=== PATIENT | male | born 1945 | race Caucasian/White ===

== ENCOUNTER 2017-03-02 08:24 | Emergency (ER) | payer MEDICARE ==
--- NOTE | 2017-03-02 09:09 | ERPHSYRPT ---
- History of Present Illness Time Seen by Provider: 03/02/17 08:47 Source: patient Patient Subjective Stated Complaint: PT REPORTS TIP OF HEARING AID IS IN RIGHT EAR-DENIES PAIN Triage Nursing Assessment: PT P[place] T [id number] OBJECT NOTED IN EAR WAX OF RIGHT EAR Physician History: CC: FB right ear Hx: 71 y/o patient of Dr Suarez lost the plastic rubber piece from hearing aid in the right ear canal. No digging, discharge. Happened today before work. No pain. Allergies/Adverse Reactions: No Known Drug Allergies Allergy (Verified 03/02/17 08:34) Home Medications: Amlodipine Besylate 10 mg [Norvasc 10 MG] 10 mg PO DAILY 03/02/17 [History] Aspirin 81 mg PO DAILY 03/02/17 [History] Clopidogrel Bisulfate 75 mg [PLAVIX 75 MG Tablet] 75 mg PO DAILY 03/02/17 [History] Digoxin 0.125 mg Tablet [Lanoxin 0.125MG TABLET] 0.125 mg PO DAILY [History] Insulin Glargine,Hum.rec.anlog [Lantus] 36 unit SQ HS 03/02/17 [History] Insulin Lispro [Humalog] 1 unit SQ UD 03/02/17 [History] Lisinopril [Zestril 40 mg] 40 mg PO DAILY 03/02/17 [History] Metformin HCl [Glucophage] 1,000 mg PO BID 03/02/17 [History] Metoprolol Tartrate 25 mg PO BID 03/02/17 [History] Ranitidine HCl [Zantac] 150 mg PO BID 03/02/17 [History] Hx Tetanus, Diphtheria Vaccination/Date Given: No Hx Influenza Vaccination/Date Given: Yes (2015) Hx Pneumococcal Vaccination/Date Given: No Immunizations Up to Date: Yes - Review of Systems Ears, Nose, & Throat: Hearing Changes (wearshearing aids), No Ear Pain, No Ear Discharge - Past Medical History Pertinent Past Medical History: Yes Neurological History: No Pertinent History ENT History: No Pertinent History Cardiac History: Arrhythmia, Hypertension, Other Respiratory History: No Pertinent History Endocrine Medical History: Diabetes Type II Musculoskeletal History: No Pertinent History GI Medical History: No Pertinent History History: No Pertinent History Psycho-Social History: No Pertinent History Male Reproductive Disorders: Other Other Medical History: Bradycardia. 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 Removed with forceps atraumatically. No bleeding or sign of canal abrasion. No residual FB. - Course Nursing assessment & vital signs reviewed: Yes - Departure Time of Disposition: 09:08 Departure Disposition: Home Clinical Impression: Acute foreign body of right ear canal Qualifiers: Encounter type: initial encounter Qualified Code(s): T16.1XXA - Foreign body in right ear, initial encounter Condition: Stable Critical Care Time: No Referrals: UMA SUAREZ [Primary Care Provider] - Instructions: Removal of Foreign Body From Ear Additional Instructions: Follow up with Dr Suarez for problems or concerns.
[2017-03-02 09:29] VITALS: BP 141/88; PULSE 80; O2SAT 97
== END 2017-03-02 09:24 | disposition home or self-care (01) ==
LOC: ED 08:24
DX: T16.1XXA Foreign body in right ear, initial encounter (principal)
CPT/HCPCS: 99282

== ENCOUNTER 2022-02-26 08:21 | Day surgery (SDC) | payer MEDICARE ==
--- NOTE | 2022-02-19 10:34 | HP ---
DATE OF SURGERY: 02/26/2022 HISTORY OF PRESENT ILLNESS: The patient is a 76-year-old male who presents for colonoscopy. The last colonoscope was about ten years ago and he had some polyps. He denies any GI signs or symptoms at this time. Denies family history of colon cancer. PAST MEDICAL HISTORY: Coronary artery disease, diabetes, hypertension. PAST SURGICAL HISTORY: Heart stents. Pacemaker x3. ALLERGIES: NKDA. MEDICATIONS: Coreg, Eliquis, zopicglone, Zetia, lisinopril, Tamsulosin hydrochlorothiazide, vitamin D. FAMILY HISTORY: None reported. SOCIAL HISTORY: None reported. REVIEW OF SYSTEMS: CONSTITUTIONAL: Denies fever or chills. CHEST: Denies shortness of breath. CVS: Denies chest pain. ABDOMEN: Denies abdominal pain, nausea, vomiting, diarrhea, constipation or rectal bleeding. PHYSICAL EXAMINATION: GENERAL: No acute distress. CHEST: Nonlabored. No shortness of breath. CVS: Regular rate and rhythm. ABDOMEN: Soft, nontender. IMPRESSION: History of colon polyps and screening. PLAN: Colonoscopy with Dr. Abhilash Martel. As dictated by Radha Reyes NP.
[2022-02-26] MEDS ORDERED: Lactated Ringers 1,000 ML IV ONE (09:36)
[2022-02-26] MEDS ORDERED: Lactated Ringers 1,000 ML IV SCH (10:00)
[2022-02-26] MEDS ORDERED: DIPRIVAN 200 MG/20 ML IV ONE ×2 (10:51→11:11)
[2022-02-26] MEDS ORDERED: Xylocaine-Mpf 2% 5 Ml Vial ONE (10:51)
[2022-02-26 12:09] VITALS: BP 141/76; PULSE 69; O2SAT 95
--- NOTE | 2022-02-26 13:09 | OP ---
SURGERY DATE/TIME: 02/26/2022 1100 PREOPERATIVE DIAGNOSIS: Follow up polyps. POSTOPERATIVE DIAGNOSIS: No polyps. PROCEDURE: Colonoscopy complete to cecum. SURGEON: Abhilash Martel M.D. ANESTHESIA: MAC. COMPLICATIONS: None. CONDITION: Stable. INDICATION: The patient presents for five year follow up of polyps. DESCRIPTION OF PROCEDURE: Taken to endoscopy. Left lateral decubitus position. Anal digital examination satisfactory. Scope introduced. The scope advanced to the cecum. Base of the cecum, ileocecal valve confirmed. Cecum, ascending, hepatic, transverse, splenic, descending, sigmoid, rectum, anus was normal. No polyps today. In three to five years he will be 79 - 81, we will not send him any reminders, will take him off the follow up list. If he has symptoms, he can return back PRN at any time.
== END 2022-02-26 12:23 | disposition home or self-care (01) ==
LOC: SDC 08:21
PROVIDERS: ATTEND Surgery
DX: Z09 Encounter for follow-up examination after completed treatment for conditions other than malignant neoplasm (principal); Z86.010 Personal history of colon polyps; E11.9 Type 2 diabetes mellitus without complications
CPT/HCPCS: 82947; 99100; J2704

== ENCOUNTER 2022-07-26 07:36 | Observation (INO) | payer MEDICARE, BC ==
[2022-07-26] MEDS ORDERED: Zofran 4 MG/2 ML VIAL IV ONE (07:47)
[2022-07-26] MEDS ORDERED: PROTONIX 40 MG IV IV ONE ×2 (07:47→08:02)
[2022-07-26] MEDS ORDERED: Zofran 4 MG/2 ML VIAL ONE (08:02)
[2022-07-26 08:12] LABS: Absolute Neutrophil Ct (ANC) 9.76 x10^3/uL (1.4-6.9); Basophil (Absolute #) 0.04 x10^3/uL (0-0.4); Eosinophil % 1.6 % (0.00-5.0); Eosinophil (Absolute #) 0.19 x10^3/uL (0-0.5); Hematocrit 39.6 % (42-50); Hemoglobin 13.1 g/dL (12.5-18.0); Lymphocyte (Absolute #) 1.05 x10^3/uL (1.0-4.6); Lymphocytes % 8.9 % (24.0-44.0); Mean Cell Volume 96.8 fL (78-100); Mean Corpuscular Hgb Concent. 33.1 g/dL (32-36); Mean Platelet Volume 10.1 fL (7.5-11.0); Monocyte (Absolute #) 0.72 x10^3/uL (0.0-1.3); Monocytes % 6.1 % (0.0-12.0); Neutrophil % 82.6 % (36.0-66.0); Platelet Count 246 x10^3/uL (150-450); Red Blood Count 4.09 x10^6/uL (4.1-5.6); White Blood Count 11.8 x10^3/uL (4.0-10.5)
--- NOTE | 2022-07-26 08:27 | ERPHSYRPT ---
- History of Present Illness Historian: patient Exam Limitations: no limitations Patient Subjective Stated Complaint: Fever/SOB Triage Nursing Assessment: Patient ambulated back to ED and transferred self to bed. Patient's skin pink, warm and dry. Patient complain of fever, SOB, cough, vomiting, fatigue for several days. Patient started having Diarrhea on Wednesday and that lasted 3 days then patient started having vomiting, fever, non productive cough, SOB, and fatigue. Patient's spouse states temp was 103.0 this am and gave him Ibruprofen. Patient's initial O2 noted to be 87%. Patient placed on O2 at 2 liters per N/C. Lungs clear a/p harris. Physician History: 76 yo WM w diarrhea M-Th last week(Now Sun) now has N and reflux wo vomiting. He has generalized abdominal pain and distension which is rated 6/10 and sharp. Pt has a mild fever and mild cough. w similar symptoms last week and has recovered. He denies melena/hematochezia/dysuria/hematuria/chest pain. Timing/Duration: other (Diarrhea M-Th/Nausea-reflux last night) Activities at Onset: rest Quality: sharpness Abdominal Pain Onset Location: generalized abdomen Pain Radiation: no radiation Severity of Pain-Max: severe Severity of Pain-Current: moderate Modifying Factors: Improves With: nothing Associated Symptoms: diarrhea, fever/chills, fatigue, loss of appetite, nausea, No back, No chest pain, No diaphoresis, No headache, No heartburn, No neck pain, No rash, No shortness of breath, No syncope, No vomiting, No weakness Previous symptoms: no prior history Allergies/Adverse Reactions: No Known Drug Allergies Allergy (Verified 07/26/22 07:49) Home Medications: Apixaban [Eliquis 5 mg Tablet] 1 tab PO BID 02/24/22 [History] Ergocalciferol (Vitamin D2) [Vitamin D2] 1 tab PO WEEKLY 02/24/22 [History] Eszopiclone 1 tab PO QHS 02/24/22 [History] Ezetimibe 10 mg [Zetia 10 MG] 1 tab PO DAILY 02/24/22 [History] Fenofibrate Nanocrystallized [Fenofibrate] 1 tab PO DAILY 02/24/22 [History] Insulin Degludec [Tresiba] 40 units SQ UD 02/24/22 [History] Insulin Glulisine [Apidra Solostar] 0 units SQ UD 02/24/22 [History] Lisinopril 20 mg [Zestril 20 MG] 1 tab PO DAILY 02/24/22 [History] Tamsulosin HCl 0.4 mg [Flomax 0.4 MG] 1 tab PO DAILY 02/24/22 [History] Triamterene/Hydrochlorothiazid [Triamterene-Hctz 37.5-25 mg Tb] 1 tab PO DAILY 02/24/22 [History] carvediloL [Carvedilol] 25 mg PO BID 02/24/22 [History] Sitagliptin Phosphate 50 MG [Januvia 50 MG] 100 mg PO DAILY 07/26/22 [History] Hx Tetanus, Diphtheria Vaccination/Date Given: No Hx Influenza Vaccination/Date Given: No Hx Pneumococcal Vaccination/Date Given: No Immunizations Up to Date: Yes Travel Risk - International Travel Have you traveled outside of the country in past 3 weeks: No - Coronavirus Screening Symptoms: Fever, Cough: New Onset, Shortness of Breath, Vomiting/Diarrhea, Headaches/Body Aches/Fatigue Close contact with a COVID-19 positive Pt in past 14-21 Days: No - Vaccine Status Have you recieved a Covid-19 vaccination: Yes Environmental Programs Manager: [employer] - Vaccination Dates Date of 2cond Vaccination (if applicable): na - Review of Systems Constitutional: No Symptoms, Fever, Chills, Fatigue, Malaise Eyes: No Symptoms Ears, Nose, & Throat: No Symptoms Respiratory: No Symptoms, Cough Cardiac: No Symptoms Abdominal/Gastrointestinal: Abdominal Pain, Nausea, Diarrhea, No Vomiting Musculoskeletal: No Symptoms Skin: No Symptoms Neurological: No Symptoms Psychological: No Symptoms Endocrine: No Symptoms Hematologic/Lymphatic: No Symptoms Immunological/Allergic: No Symptoms - Past Medical History Pertinent Past Medical History: Yes Neurological History: No Pertinent History ENT History: No Pertinent History Cardiac History: High Cholesterol, Hypertension Respiratory History: Other Endocrine Medical History: Diabetes Type II Musculoskeletal History: No Pertinent History GI Medical History: No Pertinent History History: No Pertinent History Psycho-Social History: No Pertinent History Male Reproductive Disorders: No Pertinent History Other Medical History: Shortness of breath since covid. Former smoker. Quit 40 years ago. - Past Surgical History Past Surgical History: Yes Neuro Surgical History: No Pertinent History Cardiac: Cardiac Catheterization, Cardiac Stent, Pacemaker Respiratory: No Pertinent History Gastrointestinal: Other Genitourinary: No Pertinent History Musculoskeletal: No Pertinent History Male Surgical History: No Pertinent History Other Surgical History: Pacemaker x 3. Heart Cath x 2. Cardiac stents. Colonoscopy x 2. - Social History Smoking Status: Former smoker Exposure to second hand smoke: No Drug Use: none Patient Lives Alone: No - Nursing Vital Signs Nursing Vital Signs: Initial Vital Signs Temperature 99.3 F 07/26/22 07:51 Pulse Rate 89 07/26/22 07:51 Respiratory Rate 18 07/26/22 07:51 Blood Pressure 139/77 07/26/22 07:51 O2 Sat by Pulse Oximetry 98 07/26/22 07:51 Pain Scale Pain Intensity 0 WNL - Physical Exam General Appearance: no apparent distress Eye Exam: PERRL/EOMI, eyes nml inspection Ears, Nose, Throat Exam: normal ENT inspection, TMs normal, pharynx normal, moist mucous membranes Neck Exam: normal inspection, non-tender, supple, full range of motion, No meningismus, No mass, No Brudzinski, No Kernig's, No carotid bruit Respiratory Exam: normal breath sounds, lungs clear, airway intact Cardiovascular Exam: regular rate/rhythm, normal heart sounds, normal peripheral pulses, capillary refill <2 sec, No murmur Gastrointestinal/Abdomen Exam: soft, normal bowel sounds, tenderness (Mild diffuse), distention Back Exam: normal inspection, normal range of motion, No CVA tenderness, No vertebral tenderness, No rash Extremity Exam: normal inspection, normal range of motion Neurologic Exam: alert, oriented x 3, cooperative, hop worker II-XII nml as tested, normal mood/affect, nml station & gait, sensation nml Skin Exam: normal color, warm, dry Lymphatic Exam: No adenopathy SpO2 Interpretation: normal SpO2: 98 O2 Delivery: Room Air - Course Nursing assessment & vital signs reviewed: Yes EKG Interpreted by Me: RATE (NSR Rate85/RBBB/1st degree AV block/No acute ST seg ment changes) - CT Exams Chest CT Interpretation: Tele-radiologist Report (R middle lobe-RLL infiltrate/LLL infiltrate) Abdomen/Pelvis CT Interpretation: Tele-radiologist Report (NAD in abdomen-pelvis) Ordered Tests: Active Orders 24 hr Category Date Time Status Bedrest with BRP/BSC ROUTINE Activity 07/26/22 10:14 Active Code Status Order ROUTINE Care 07/26/22 10:13 Active EKG-ER Only STAT Care 07/26/22 07:47 Active IV Care Q6H Care 07/26/22 10:13 Active IV Insertion STAT Care 07/26/22 07:47 Active Intake and Output Q12H Care 07/26/22 10:[address] in Observation ROUTINE Care 07/26/22 10:13 Active Vital Signs Q4H Care 07/26/22 10:12 Active Consistent Carbohydrate Diet 2000 Calorie Diet 07/26/22 Lunch Active ABDOMEN AND PELVIS W/0 CONTRAS [CT] Stat Exams 07/26/22 07:48 Taken CHEST WITHOUT CONTRAST [CT] Stat Exams 07/26/22 08:34 Taken AMYLASE Stat Lab 07/26/22 08:00 Completed BLOOD CULTURE Stat Lab 07/26/22 10:17 Received CBC W DIFF AM.LAB Lab 07/27/22 04:00 Ordered CBC W DIFF Stat Lab 07/26/22 08:00 Completed CMP AM.LAB Lab 07/27/22 04:00 Ordered CMP Stat Lab 07/26/22 08:00 Completed LIPASE Stat Lab 07/26/22 08:00 Completed Lactic Acid AM.LAB Lab 07/27/22 04:00 Ordered Lactic Acid Stat Lab 07/26/22 08:25 Completed Lactic Acid Stat Lab 07/26/22 10:30 Received TROPONIN Q4H Lab 07/26/22 08:00 Completed TROPONIN Q4H Lab 07/26/22 12:00 Ordered TROPONIN Q4H Lab 07/26/22 16:00 Ordered UA W/RFX CULTURE Stat Lab 07/26/22 08:01 Completed Oxygen Nasal Cannula 2 lpm RT 07/26/22 10:12 Active Transfer Order Routine Transfer 07/26/22 Ordered Medication Summary Generic Name Dose Route Start Last Admin Trade Name Freq PRN Reason Stop Dose Admin Heparin Sodium (Beef Lung) 5,000 unit 07/26/22 14:00 Heparin 5000 Unit/0.5 Ml Syringe SQ 08/25/22 13:59 Q8HT MATHEW Sodium Chloride 1,000 mls @ 100 mls/hr 07/26/22 10:15 Sodium Chloride 0.9% 1000 Ml IV 08/25/22 10:14 .Q10H MATHEW Azithromycin 500 mg in 250 mls @ 250 mls/hr 07/26/22 12:00 Zithromax 500 Mg/ 250 Ml Nacl Premix IV 08/25/22 11:59 Q24H10 [facility] Ceftriaxone Sodium/Dextrose 1 g in 50 mls @ 100 mls/hr 07/27/22 10:00 Rocephin 1 Gm-D5w 50 Ml Bag IV 07/30/22 09:59 Q24H10 [facility] Insulin Human Lispro 0 unit 07/26/22 10:12 Insulin Lispro 1 Unit SQ 08/25/22 10:11 UD PRN HYPERGLYCEMIA Ondansetron HCl 4 mg 07/26/22 10:12 Ondansetron Hcl 4 Mg/2 Ml Vial IV 08/25/22 10:11 Q6H PRN PRN NAUSEA/VOMITING Pantoprazole Sodium 40 mg 07/27/22 10:00 Pantoprazole 40 Mg Vial IV 08/26/22 09:59 Q24H10 [facility] Discontinued Medications Generic Name Dose Route Start Last Admin Trade Name Freq PRN Reason Stop Dose Admin Sodium Chloride 1,000 mls @ 999 mls/hr 07/26/22 08:29 07/26/22 10:24 Sodium Chloride 0.9% 1000 Ml IV 07/26/22 09:29 Infused .Q1H1M STA Infusion Sodium Chloride Confirm 07/26/22 08:30 Sodium Chloride 0.9% 1000 Ml Administered 07/26/22 08:31 Dose 1,000 mls @ ud .ROUTE .STK-MED ONE Sodium Chloride 1,000 mls @ 999 mls/hr 07/26/22 09:13 07/26/22 11:27 Sodium Chloride 0.9% 1000 Ml IV 07/26/22 10:13 Infused .Q1H1M STA Infusion Sodium Chloride Confirm 07/26/22 09:38 Sodium Chloride 0.9% 1000 Ml Administered 07/26/22 09:39 Dose 1,000 mls @ ud .ROUTE .STK-MED ONE Ceftriaxone Sodium/Dextrose 1 g in 50 mls @ 100 mls/hr 07/26/22 09:57 07/26/22 10:57 Rocephin 1 Gm-D5w 50 Ml Bag IV 07/26/22 10:26 Infused STAT STA Infusion Sodium Chloride 1,000 mls @ 999 mls/hr 07/26/22 09:57 07/26/22 11:27 Sodium Chloride 0.9% 1000 Ml IV 07/26/22 10:57 999 mls/hr .Q1H1M STA Administration Sodium Chloride Confirm 07/26/22 10:04 Sodium Chloride 0.9% 1000 Ml Administered 07/26/22 10:05 Dose 1,000 mls @ ud .ROUTE .STK-MED ONE Ceftriaxone Sodium/Dextrose Confirm 07/26/22 10:04 Rocephin 1 Gm-D5w 50 Ml Bag Administered 07/26/22 10:05 Dose 1 g in 50 mls @ ud IV .STK-MED ONE Ondansetron HCl 4 mg 07/26/22 07:47 07/26/22 08:03 Ondansetron Hcl 4 Mg/2 Ml Vial IV 07/26/22 07:48 4 mg STAT ONE Administration Ondansetron HCl Confirm 07/26/22 08:02 Ondansetron Hcl 4 Mg/2 Ml Vial Administered 07/26/22 08:03 Dose 4 mg .ROUTE .STK-MED ONE Pantoprazole Sodium 40 mg 07/26/22 07:47 07/26/22 08:03 Pantoprazole 40 Mg Vial IV 07/26/22 07:48 40 mg STAT ONE Administration Pantoprazole Sodium Confirm 07/26/22 08:02 Pantoprazole 40 Mg Vial Administered 07/26/22 08:03 Dose 40 mg IV .STK-MED ONE Lab/Rad Data: Laboratory Result Diagrams 07/26/22 08:00 07/26/22 08:00 Laboratory Results 07/26/22 07/26/22 07/26/22 Range/Units 08:25 08:01 08:00 WBC (4.0-10.5) x10^3/uL RBC (4.1-5.6) x10^6/uL Hgb (12.5-18.0) g/dL Hct (42-50) % MCV (78-100) fL MCH (26-32) pg MCHC (32-36) g/dL RDW (11.5-14.0) % Plt Count (150-450) x10^3/uL MPV (7.5-11.0) fL Gran % (36.0-66.0) % Immature Gran % (Auto) (0.00-0.4) % Nucleat RBC Rel Count (0.00-0.1) % Eos # (Auto) (0-0.5) x10^3/uL Immature Gran # (Auto) (0.00-0.03) x10^3u/L Absolute Lymphs (auto) (1.0-4.6) x10^3/uL Absolute Monos (auto) (0.0-1.3) x10^3/uL Absolute Nucleated RBC (0.00-0.01) x10^3u/L Lymphocytes % (24.0-44.0) % Monocytes % (0.0-12.0) % Eosinophils % (0.00-5.0) % Basophils % (0.0-0.4) % Absolute Granulocytes (1.4-6.9) x10^3/uL Basophils # (0-0.4) x10^3/uL Sodium (137-145) mmol/L Potassium (3.5-5.1) mmol/L Chloride (98-107) mmol/L Carbon Dioxide (22-30) mmol/L Anion Gap (5-15) MEQ/L BUN (9-20) mg/dL Creatinine (0.66-1.25) mg/dL Estimated GFR ML/MIN Glucose (74-106) mg/dL Lactic Acid 2.8 H (0.4-2.0) Calcium (8.4-10.2) mg/dL Total Bilirubin (0.2-1.3) mg/dL AST (17-59) U/L ALT (0-50) U/L Alkaline Phosphatase (38-126) U/L Troponin I < 0.012 (0.000-0.034) ng/mL Serum Total Protein (6.3-8.2) g/dL Albumin (3.5-5.0) g/dL Amylase (30-110) U/L Lipase (23-300) U/L Urinalys Dipstick Clnc MAIN LAB Urine Color YELLOW (YELLOW) Urine Appearance CLEAR (CLEAR) Urine pH 6.0 (5-6) Ur Specific [place] 1.025 (1.005-1.025) POC Urine Protein Conf TRACE (Negative) Urine Ketones NEGATIVE (NEGATIVE) Urine Nitrite NEGATIVE (NEGATIVE) Urine Bilirubin NEGATIVE (NEGATIVE) Urine Urobilinogen 0.2 (0-1) mg/dL Urine Leukocytes NEGATIVE (NEGATIVE) Urine WBC (Auto) NONE (0-5) /HPF Urine RBC (Auto) NONE SEEN (0-2) /HPF U Hyaline Cast (Auto) 0-2 (0-2) /LPF U Epithel Cells (Auto) NONE (FEW) /HPF Urine Bacteria (Auto) NONE SEEN (NEGATIVE) /HPF Urine RBC NEGATIVE (0-5) Zeus/ul Urine Mucus (Auto) SLIGHT (NEGATIVE) /HPF Ur Culture Indicated? NO Urine Glucose NEGATIVE (NEGATIVE) mg/dL Influenza Type A Ag (NEGATIVE) Influenza Type B Ag (NEGATIVE) RSV (PCR) (Negative) SARS-CoV-2 (PCR) (NEGATIVE) 07/26/22 07/26/22 07/26/22 Range/Units 08:00 08:00 07:58 WBC 11.8 H (4.0-10.5) x10^3/uL RBC 4.09 L (4.1-5.6) x10^6/uL Hgb 13.1 (12.5-18.0) g/dL Hct 39.6 L (42-50) % MCV 96.8 (78-100) fL MCH 32.0 (26-32) pg MCHC 33.1 (32-36) g/dL RDW 13.0 (11.5-14.0) % Plt Count 246 (150-450) x10^3/uL MPV 10.1 (7.5-11.0) fL Gran % 82.6 H (36.0-66.0) % Immature Gran % (Auto) 0.5 H (0.00-0.4) % Nucleat RBC Rel Count 0.0 (0.00-0.1) % Eos # (Auto) 0.19 (0-0.5) x10^3/uL Immature Gran # (Auto) 0.06 H (0.00-0.03) x10^3u/L Absolute Lymphs (auto) 1.05 (1.0-4.6) x10^3/uL Absolute Monos (auto) 0.72 (0.0-1.3) x10^3/uL Absolute Nucleated RBC 0.00 (0.00-0.01) x10^3u/L Lymphocytes % 8.9 L (24.0-44.0) % Monocytes % 6.1 (0.0-12.0) % Eosinophils % 1.6 (0.00-5.0) % Basophils % 0.3 (0.0-0.4) % Absolute Granulocytes 9.76 H (1.4-6.9) x10^3/uL Basophils # 0.04 (0-0.4) x10^3/uL Sodium 135 L (137-145) mmol/L Potassium 4.6 (3.5-5.1) mmol/L Chloride 101 (98-107) mmol/L Carbon Dioxide 24 (22-30) mmol/L Anion Gap 13.9 (5-15) MEQ/L BUN 35 H (9-20) mg/dL Creatinine 1.56 H (0.66-1.25) mg/dL Estimated GFR 46.1 ML/MIN Glucose 135 H (74-106) mg/dL Lactic Acid (0.4-2.0) Calcium 8.5 (8.4-10.2) mg/dL Total Bilirubin 0.50 (0.2-1.3) mg/dL AST 29 (17-59) U/L ALT 19 (0-50) U/L Alkaline Phosphatase 44 (38-126) U/L Troponin I (0.000-0.034) ng/mL Serum Total Protein 6.9 (6.3-8.2) g/dL Albumin 3.8 (3.5-5.0) g/dL Amylase 55 (30-110) U/L Lipase 51 (23-300) U/L Urinalys Dipstick Clnc Urine Color (YELLOW) Urine Appearance (CLEAR) Urine pH (5-6) Ur Specific [place] (1.005-1.025) POC Urine Protein Conf (Negative) Urine Ketones (NEGATIVE) Urine Nitrite (NEGATIVE) Urine Bilirubin (NEGATIVE) Urine Urobilinogen (0-1) mg/dL Urine Leukocytes (NEGATIVE) Urine WBC (Auto) (0-5) /HPF Urine RBC (Auto) (0-2) /HPF U Hyaline Cast (Auto) (0-2) /LPF U Epithel Cells (Auto) (FEW) /HPF Urine Bacteria (Auto) (NEGATIVE) /HPF Urine RBC (0-5) Zeus/ul Urine Mucus (Auto) (NEGATIVE) /HPF Ur Culture Indicated? Urine Glucose (NEGATIVE) mg/dL Influenza Type A Ag NEGATIVE (NEGATIVE) Influenza Type B Ag NEGATIVE (NEGATIVE) RSV (PCR) NEGATIVE (Negative) SARS-CoV-2 (PCR) NEGATIVE (NEGATIVE) - Progress Progress: improved Progress Note: 07/26/22 10:18 1L NS bolus x2 in ER w 3rd ordered for 30ml/Kg sepsis protocol 1gm IV Rocephin Discussed with : Trever Will see patient in: hospital (observation) Counseled pt/family regarding: lab results, diagnosis, need for follow-up, rad results - Departure Departure Disposition: Observation Clinical Impression: Pneumonia Condition: Stable Critical Care Time: No
[2022-07-26] MEDS ORDERED: Sodium Chloride 0.9% 1000 ML 1,000 ML IV STA ×2 (08:29→09:57)
[2022-07-26] MEDS ORDERED: Sodium Chloride 0.9% 1000 ML 1,000 ML ONE ×3 (08:30→10:04)
[2022-07-26 08:36] LABS: ALBUMIN 3.8 g/dL (3.5-5.0); ANION GAP 13.9 MEQ/L (5-15); BILIRUBIN,TOTAL 0.5 mg/dL (0.2-1.3); Calcium 8.5 mg/dL (8.4-10.2); Creatinine 1 1.56 mg/dL (0.66-1.25); EST GLOMERULAR FILTRATION RATE 46.1 ML/MIN; Potassium 4.6 mmol/L (3.5-5.1); Total Protein 6.9 g/dL (6.3-8.2)
[2022-07-26 08:57] LABS: INFLUENZA A NEGATIVE (NEGATIVE); INFLUENZA B NEGATIVE (NEGATIVE); RESPIRATORY SYNCTIAL VIRUS NEGATIVE (Negative); SARS-CoV-2 Xpert Express NEGATIVE (NEGATIVE)
[2022-07-26 09:05] LABS: Appearance CLEAR (CLEAR); Bilirubin NEGATIVE (NEGATIVE); Dipstick done @ ? MAIN LAB; Glucose NEGATIVE (NEGATIVE); Ketones NEGATIVE (NEGATIVE); Nitrite NEGATIVE (NEGATIVE); Protein,Urine Dip TRACE (Negative); RBC NEGATIVE Ery/ul (0-5); Specific Gravity 1.025 (1.005-1.025); Urobilinogen 0.2 mg/dL (0-1)
[2022-07-26 09:06] LABS: Hyaline Casts 0-2 /LPF (0-2); Mucus SLIGHT /HPF (NEGATIVE)
[2022-07-26 09:07] LABS: Bacteria NONE SEEN /HPF (NEGATIVE); RBC NONE SEEN /HPF (0-2); Urine Cultured Indicated? NO
[2022-07-26] MEDS: Sodium Chloride 0.9% 1000 ML 1,000 ML IV STA ×2 (09:39→10:04)
[2022-07-26] MEDS ORDERED: ROCEPHIN 1 Gm-D5w 50 ml Bag** 1 G/50 ML IVPB IV STA (09:57)
[2022-07-26] MEDS ORDERED: ROCEPHIN 1 Gm-D5w 50 ml Bag** 1 G/50 ML IVPB IV ONE (10:04)
[2022-07-26] MEDS ORDERED: Zofran 4 MG/2 ML VIAL IV PRN (10:12)
[2022-07-26] MEDS ORDERED: HUMALOG SQ PRN (10:12)
[2022-07-26] MEDS: Sodium Chloride 0.9% 1000 ML 1,000 ML IV SCH ×2 (12:26→22:24)
[2022-07-26] MEDS ORDERED: HEPARIN 5000 UNITS/0.5 ML (HIGH RISK MED) SQ SCH (14:00)
[2022-07-26] MEDS: Zithromax 500 MG/ 250 ML NaCl Premix 500 MG/250 ML IVPB IV SCH (14:00)
[2022-07-26] MEDS ORDERED: INSULIN DEGLUDEC 100 UNIT/ML SQ SCH (14:30)
[2022-07-26] MEDS ORDERED: MEDICATION INTERVENTION MC SCH (15:00)
[2022-07-26] MEDS: Flomax 0.4 MG PO SCH (16:32)
[2022-07-26] MEDS: Tricor 145 MG PO SCH (16:32)
[2022-07-26] MEDS: Zetia 10 MG PO SCH (16:32)
[2022-07-26] MEDS: Maxzide-25MG Tablet PO SCH (16:33)
[2022-07-26] MEDS: Zestril 20 MG PO SCH (16:33)
[2022-07-26] MEDS: Januvia 50 MG PO SCH (16:33)
--- NOTE | 2022-07-26 17:53 | XRAY ---
Indication: Dyspnea, cough, and fever. Multiple contiguous images obtained through the chest without contrast. Comparison: November 04, 2020 Lungs again demonstrates diffuse patchy airspace disease worsened in the interim, right greater than left. No effusion. Heart not enlarged again with left dual-lead pacemaker. Aorta demonstrates minimal scattered arteriosclerotic calcifications without aneurysm. No pathologic mediastinal lymphadenopathy. Stable small mediastinal lymph nodes again largest subcarinal measuring 1.5 x 1.6 cm. Bony thorax intact again with osteopenia and mild degenerative changes throughout the spine. CT abdomen/pelvis reported separately. Impression: Worsening diffuse bilateral airspace disease, right greater than left. Small mediastinal lymph nodes presumed reactive. Comment: Preliminary interpretation made by C. No critical discrepancy.
--- NOTE | 2022-07-26 17:57 | XRAY ---
Indication: Abdomen pain, nausea, vomiting, diarrhea. Multiple contiguous images obtained through the abdomen and pelvis without contrast. Comparison: None CT chest reported separately. Noncontrasted stomach and bowel loops appear nonobstructed with normal appendix. Minimal scattered colonic diverticulosis without diverticulitis. No free fluid/air. Enlarged prostate gland impresses on the base of the bladder. Remaining liver, gallbladder, pancreas, spleen, adrenal glands, kidneys, ureters, and bladder are unremarkable for noncontrast exam. Mild scattered aortoiliac calcifications without AAA. Osseous structures intact with osteopenia and mild degenerative changes throughout the thoracolumbar spine. Small fatty left inguinal hernia. Impression: 1. Colonic diverticulosis, enlarged prostate gland, arteriosclerotic disease, fatty left inguinal hernia, and chronic bony findings. 2. Remaining CT abdomen/pelvis without contrast exam is negative. Comment: Preliminary interpretation made by [facility]. No critical discrepancy.
[2022-07-26] MEDS: COREG 12.5 MG PO SCH (20:33)
[2022-07-26] MEDS: ELIQUIS 2.5 MG TABLET PO SCH (20:34)
[2022-07-26] MEDS ORDERED: NON-FORMULARY ITEM SQ ONE ×2 (21:00→22:00)
[2022-07-26] MEDS ORDERED: Lantus Insulin SQ SCH (22:00)
[2022-07-26] MEDS ORDERED: NON-FORMULARY ITEM (Carvedilol [Carvedilol] 25 MG Tablet) PO SCH (22:00)
[2022-07-26] MEDS ORDERED: NON-FORMULARY ITEM (Apixaban*** [Eliquis 5 Mg Tablet***] 5 MG Tablet) PO SCH (22:00)
[2022-07-26] MEDS ORDERED: ESZOPICLONE 3 MG PO SCH (22:00)
[2022-07-27 05:46] LABS: Absolute Neutrophil Ct (ANC) 8.61 x10^3/uL (1.4-6.9); Basophil (Absolute #) 0.07 x10^3/uL (0-0.4); Eosinophil % 2.2 % (0.00-5.0); Eosinophil (Absolute #) 0.26 x10^3/uL (0-0.5); Hematocrit 33.6 % (42-50); Hemoglobin 10.7 g/dL (12.5-18.0); Lymphocyte (Absolute #) 2.02 x10^3/uL (1.0-4.6); Lymphocytes % 16.9 % (24.0-44.0); Mean Cell Volume 99.4 fL (78-100); Mean Corpuscular Hemoglobin 31.7 pg (26-32); Mean Corpuscular Hgb Concent. 31.8 g/dL (32-36); Mean Platelet Volume 10.5 fL (7.5-11.0); Monocytes % 7.6 % (0.0-12.0); Neutrophil % 72.2 % (36.0-66.0); Platelet Count 219 x10^3/uL (150-450); Red Blood Count 3.38 x10^6/uL (4.1-5.6); Red Cell Distribution Width 13.5 % (11.5-14.0); White Blood Count 11.9 x10^3/uL (4.0-10.5)
[2022-07-27 06:08] LABS: ANION GAP 10.3 MEQ/L (5-15); BILIRUBIN,TOTAL 0.4 mg/dL (0.2-1.3); Calcium 7.6 mg/dL (8.4-10.2); Creatinine 1 1.38 mg/dL (0.66-1.25); EST GLOMERULAR FILTRATION RATE 53.1 ML/MIN; Potassium 4.5 mmol/L (3.5-5.1); Total Protein 5.6 g/dL (6.3-8.2)
[2022-07-27] MEDS: Sodium Chloride 0.9% 1000 ML 1,000 ML IV SCH (06:33)
[2022-07-27 07:12] VITALS: O2SAT 90
[2022-07-27] MEDS ORDERED: NON-FORMULARY ITEM SQ SCH (07:30)
[2022-07-27] MEDS: PATIENT OWN MEDICATION SQ SCH ×2 (07:52→12:25)
[2022-07-27] MEDS: Flomax 0.4 MG PO SCH (07:53)
[2022-07-27] MEDS: ELIQUIS 2.5 MG TABLET PO SCH (07:53)
[2022-07-27] MEDS: Januvia 50 MG PO SCH (07:53)
[2022-07-27] MEDS: COREG 12.5 MG PO SCH (07:53)
[2022-07-27] MEDS: Zestril 20 MG PO SCH (07:54)
[2022-07-27] MEDS: Zetia 10 MG PO SCH (07:54)
[2022-07-27] MEDS: Maxzide-25MG Tablet PO SCH (07:54)
[2022-07-27] MEDS: Tricor 145 MG PO SCH (07:54)
[2022-07-27] MEDS: Zithromax 500 MG/ 250 ML NaCl Premix 500 MG/250 ML IVPB IV SCH (09:29)
[2022-07-27] MEDS ORDERED: ROCEPHIN 1 Gm-D5w 50 ml Bag** 1 G/50 ML IVPB IV SCH (10:00)
[2022-07-27] MEDS ORDERED: PROTONIX 40 MG IV IV SCH (10:00)
[2022-07-27 11:51] VITALS: BP 120/57; PULSE 63
[2022-07-27] MEDS ORDERED: PATIENT OWN MEDICATION SQ SCH (22:00)
[2022-08-01] MEDS ORDERED: VITAMIN D2 PO SCH (10:00)
--- NOTE | 2022-08-18 07:36 | PCM.SSS ---
History of Present Illness - Chief Complaint Chief Complaint: Pneumonia History of Present Illness: is a 76 year old male patient of DR Roberts who presented to ER C/O fever 103 and generalized weaknessa after 3 days of diarrhea N/V and cough. ER eval shows bibasilar Pneumonia and patient was admitted to [facility] OBS. PMHx includes HTN,CAD/stent,DM2. - Review of Systems Constitutional: Fever, Chills, Weakness Eyes: No Symptoms Ears, Nose, & Throat: No Symptoms Respiratory: Cough Cardiac: No Symptoms Abdominal/Gastrointestinal: Nausea, Vomiting, Diarrhea Genitourinary Symptoms: No Symptoms Musculoskeletal: No Symptoms Skin: No Symptoms Neurological: No Symptoms Psychological: No Symptoms Endocrine: No Symptoms Hematologic/Lymphatic: No Symptoms Immunological/Allergic: No Symptoms Medications & Allergies Home Medications: Home Medication List Apixaban [Eliquis 5 mg Tablet] 1 tab PO BID 02/24/22 [History Confirmed 07/30/22] Ergocalciferol (Vitamin D2) [Vitamin D2] 1 tab PO WEEKLY 02/24/22 [History Confirmed 07/30/22] Eszopiclone 1 tab PO QHS 02/24/22 [History Confirmed 07/30/22] Ezetimibe 10 mg [Zetia 10 MG] 1 tab PO DAILY 02/24/22 [History Confirmed 0 07/30/22] Fenofibrate Nanocrystallized [Fenofibrate] 1 tab PO DAILY 02/24/22 [History Confirmed 07/30/22] Insulin Degludec [Tresiba] 40 units SQ UD 02/24/22 [History Confirmed 07/30/22] Insulin Glulisine [Apidra Solostar] 0 units SQ UD 02/24/22 [History Confirmed 07/30/22] Lisinopril 20 mg [Zestril 20 MG] 1 tab PO DAILY 02/24/22 [History Confirmed 07/30/22] Tamsulosin HCl 0.4 mg [Flomax 0.4 MG] 1 tab PO DAILY 02/24/22 [History Confirmed 07/30/22] Triamterene/Hydrochlorothiazid [Triamterene-Hctz 37.5-25 mg Tb] 1 tab PO DAILY 02/24/22 [History Confirmed 07/30/22] carvediloL [Carvedilol] 25 mg PO BID 02/24/22 [History Confirmed 07/30/22] Sitagliptin Phosphate 50 MG [Januvia 50 MG] 100 mg PO DAILY 07/26/22 [History Confirmed 07/30/22] Levofloxacin [Levofloxacin 500 MG Tablet] 500 mg PO DAILY #5 tablet 07/27/22 [Rx Confirmed 07/30/22] Allergies/Adverse Reactions: Allergies Allergy/AdvReac Type Severity Reaction Status Date / Time No Known Drug Allergies Allergy Verified 07/30/22 09:54 - Past Medical History Past Medical History: Yes Neurological History: No Pertinent History ENT History: No Pertinent History Cardiac History: High Cholesterol, Hypertension Respiratory History: Other Endocrine Medical History: Diabetes Type II Musculoskelatal History: No Pertinent History GI Medical History: No Pertinent History History: No Pertinent History Pyscho-Social History: No Pertinent History Male Reproductive Disorders: No Pertinent History Comment: Shortness of breath since covid. Former smoker. Quit 40 years ago. - Past Surgical History Past Surgical History: Yes Neuro Surgical History: No Pertinent History Cardiac History: Cardiac Catheterization, Cardiac Stent, Pacemaker Respiratory Surgery: No Pertinent History GI Surgical History: Other Genitourinary Surgical Hx: No Pertinent History Musculskeletal Surgical Hx: No Pertinent History Male Surgical History: No Pertinent History Other Surgical History: Pacemaker x 3. Heart Cath x 2. Cardiac stents. Colonoscopy x 2. - Social History Smoking Status: Former smoker Exposure to second hand smoke: No Alcohol: None Drug Use: none - Physical Exam General Appearance: no apparent distress Neurologic Exam: alert, oriented x 3 Eye Exam: eyes nml inspection Ears, Nose, Throat Exam: moist mucous membranes Neck Exam: normal inspection Respiratory Exam: diminished breath sounds (bases) Cardiovascular Exam: regular rate/rhythm Gastrointestinal/Abdomen Exam: soft, normal bowel sounds, tenderness (generalized) Rectal Exam: not done Back Exam: normal inspection Extremity Exam: normal inspection Skin Exam: normal color, warm, dry Results - Labs Lab/Micro Results: Microbiology 07/26/22 10:17 Blood Culture Gram Stain - Final Blood Blood Culture - Final Coagulase Negative Staph. Possible Contaminant. Clinical judgement required. No further workup performed. 07/26/22 08:00 Blood Culture Gram Stain - Final Blood Not Reportable Blood Culture - Final NO GROWTH Assessment/Plan (1) Pneumonia Status: Acute Qualifiers: Laterality: bilateral Lung location: lower lobe of lung Assessment & Plan: was given IV rocephin in ER,, Rx po Levaquin and home O2 at 2L on discharge Code(s): J18.9 - PNEUMONIA, UNSPECIFIED ORGANISM (2) Gastroenteritis Status: Resolved Code(s): K52.9 - NONINFECTIVE GASTROENTERITIS AND COLITIS, UNSPECIFIED (3) Volume depletion, gastrointestinal loss Status: Resolved Assessment & Plan: IV fluids ,tolerating regular diet on discharge Code(s): E86.9 - VOLUME DEPLETION, UNSPECIFIED Hospital Summary - Hospital Course Hospital Course: Admitted with volume depletion due to gastroenetritis and pneumonia which improved with IV fluids and IV antibiotics , Patient was discharged on Levaquin and home O2 to follow with his PCP,Dr Stout. - Vitals & Intake/Output Vital Signs: Vital Signs Temperature 98.7 F 07/27/22 11:50 Pulse Rate 63 07/27/22 11:50 Respiratory Rate 18 07/27/22 11:50 Blood Pressure 120/57 07/27/22 11:50 O2 Sat by Pulse Oximetry 90 L 07/27/22 11:50 - Lab Result Diagrams: 07/27/22 05:45 07/27/22 05:45 Micro Results-Entire Visit: Microbiology 07/26/22 10:17 Blood Culture Gram Stain - Final Blood Blood Culture - Final Coagulase Negative Staph. Possible Contaminant. Clinical judgement required. No further workup performed. 07/26/22 08:00 Blood Culture Gram Stain - Final Blood Not Reportable Blood Culture - Final NO GROWTH - Procedures and Test Procedures and Tests throughout Hospitalization: Therapy Orders & Screens 07/26/22 10:12 Oxygen Nasal Cannula 2 lpm Comment: - Discharge Disposition: Home, Self-Care Condition: Stable Prescriptions: New Levofloxacin [Levofloxacin 500 MG Tablet] 500 mg PO DAILY #5 tablet Continue Eszopiclone 1 tab PO QHS Apixaban [Eliquis 5 mg Tablet] 1 tab PO BID Fenofibrate Nanocrystallized [Fenofibrate] 1 tab PO DAILY Ergocalciferol (Vitamin D2) [Vitamin D2] 1 tab PO WEEKLY Lisinopril 20 mg [Zestril 20 MG] 1 tab PO DAILY Triamterene/Hydrochlorothiazid [Triamterene-Hctz 37.5-25 mg Tb] 1 tab PO DAILY Tamsulosin HCl 0.4 mg [Flomax 0.4 MG] 1 tab PO DAILY carvediloL [Carvedilol] 25 mg PO BID Insulin Glulisine [Apidra Solostar] 0 units SQ UD Insulin Degludec [Tresiba] 40 units SQ UD Ezetimibe 10 mg [Zetia 10 MG] 1 tab PO DAILY Sitagliptin Phosphate 50 MG [Januvia 50 MG] 100 mg PO DAILY Instructions: Pneumonia, Adult (DC) Additional Instructions: CONTINUE TO WEAR OXYGEN AT 2L PER NC AT HOME NEEDED. Follow up with: VERN STOUT [Primary Care Provider] - 07/31/22 10:00 am Forms: Discharge Instructions
== END 2022-07-27 14:10 | disposition home or self-care (01) ==
LOC: ED 07:36 → MED SURG 11:18
PROVIDERS: ADMIT Family Medicine; ATTEND Family Medicine
DX: J18.9 Pneumonia, unspecified organism (principal); R50.9 Fever, unspecified; R19.7 Diarrhea, unspecified; R11.0 Nausea; E78.00 Pure hypercholesterolemia, unspecified; I10 Essential (primary) hypertension; E11.9 Type 2 diabetes mellitus without complications; Z20.828 Contact with and (suspected) exposure to other viral communicable diseases; Z79.01 Long term (current) use of anticoagulants; Z79.899 Other long term (current) drug therapy
CPT/HCPCS: 0241U; 36000; 36415; 71250; 74176; 80053; 81015; 82150; 82947; 83036; 83605; 83690; 83880; 84484; 85025; 87040; 93005; 94760; 96360; 96361; 96365; 96374; 96375; 99285; G0378; J0456; J0696; J2405; A9270-GY

== ENCOUNTER 2024-12-01 08:50 | Emergency (ER) | payer MEDICARE ==
[2024-12-01 09:03] VITALS: TEMP 99
--- NOTE | 2024-12-01 09:05 | ERPHSYRPT ---
- History of Present Illness Time Seen by Provider: 12/01/24 09:05 Source: patient, family Exam Limitations: no limitations Patient Subjective Stated Complaint: Cough Triage Nursing Assessment: Patient ambulated back to ED and transferred self to bed. Patient A+O X 3. Patient's skin flushed, warm and dry. Patient complains of productive cough with thick yellow sputum for the past 4 days. Patient denies pain or discomfort. Lungs noted to be diminished throughout. Physician History: This is an 79-year-old white male patient who presents by private vehicle accompanied by his spouse with a complaint of productive cough for 4 days. The sputum has been yellowish. Patient's room air oxygen saturation level on arrival to the emergency department is 96%. He denies chest pain. He denies abdominal pain. He chronically has shortness of breath since being diagnosed with COVID in the past. He is a former smoker of tobacco cigarettes. Patient denies nausea vomiting diarrhea. He has not had a fever. Patient has a history of hypertension, coronary disease, diabetes, hyperlipidemia and is on Eliquis. Timing/Duration: day(s) (4) Cough Quality/Degree: mild, productive cough (Yellowish sputum) Possible Cause: occasional episodes Modifying Factors: Improves With: coughing Associated Symptoms: cough, wheezing, No fever, No chest pain/soreness, No nasal congestion, No shortness of breath, No sore throat Allergies/Adverse Reactions: No Known Drug Allergies Allergy (Verified 12/01/24 08:58) Home Medications: Apixaban [Eliquis 5 mg Tablet] 1 tab PO BID 02/24/22 [History] Ergocalciferol (Vitamin D2) [Vitamin D2] 1 tab PO WEEKLY 02/24/22 [History] Eszopiclone 1 tab PO QHS 02/24/22 [History] Ezetimibe 10 mg [Zetia 10 MG] 1 tab PO DAILY 02/24/22 [History] Fenofibrate Nanocrystallized [Fenofibrate] 1 tab PO DAILY 02/24/22 [History] Insulin Degludec [Tresiba] 40 units SQ UD 02/24/22 [History] Insulin Glulisine [Apidra Solostar] 0 units SQ UD 02/24/22 [History] Lisinopril 20 mg [Zestril 20 MG] 1 tab PO DAILY 02/24/22 [History] Tamsulosin HCl 0.4 mg [Flomax 0.4 MG] 1 tab PO DAILY 02/24/22 [History] Triamterene/Hydrochlorothiazid [Triamterene-Hctz 37.5-25 mg Tb] 1 tab PO DAILY 02/24/22 [History] carvediloL [Carvedilol] 25 mg PO BID 02/24/22 [History] Sitagliptin Phosphate 50 MG [Januvia 50 MG] 100 mg PO DAILY 07/26/22 [History] Hx Tetanus, Diphtheria Vaccination/Date Given: No Hx Influenza Vaccination/Date Given: Yes Hx Pneumococcal Vaccination/Date Given: Yes Immunizations Up to Date: Yes Travel Risk - International Travel Have you traveled outside of the country in past 3 weeks: No - Emerging Infectious Disease Are you exhibiting symptoms associated with any current EIDs: Yes Symptoms: Cough: New Onset - Review of Systems Constitutional: No Symptoms Eyes: No Symptoms Ears, Nose, & Throat: No Symptoms Respiratory: Cough, Wheezing Cardiac: No Symptoms Abdominal/Gastrointestinal: No Symptoms Genitourinary Symptoms: No Symptoms Musculoskeletal: No Symptoms Skin: No Symptoms Neurological: No Symptoms Psychological: No Symptoms Endocrine: No Symptoms Hematologic/Lymphatic: No Symptoms Immunological/Allergic: No Symptoms All Other Systems: Reviewed and Negative - Past Medical History Pertinent Past Medical History: Yes Neurological History: No Pertinent History ENT History: No Pertinent History Cardiac History: High Cholesterol, Hypertension Respiratory History: Other Endocrine Medical History: Diabetes Type II Musculoskeletal History: No Pertinent History GI Medical History: No Pertinent History History: No Pertinent History Psycho-Social History: No Pertinent History Male Reproductive Disorders: No Pertinent History Other Medical History: Shortness of breath since covid. Former smoker. Quit 40 years ago. - Past Surgical History Past Surgical History: Yes Neuro Surgical History: No Pertinent History Cardiac: Cardiac Catheterization, Cardiac Stent, Pacemaker Respiratory: No Pertinent History Gastrointestinal: Other Genitourinary: No Pertinent History Musculoskeletal: No Pertinent History Male Surgical History: No Pertinent History Other Surgical History: Pacemaker x 3. Heart Cath x 2. Cardiac stents. Colonoscopy x 2. - Social History Smoking Status: Former smoker Exposure to second hand smoke: No Drug Use: none Patient Lives Alone: No - Social Determinants of Health Will the patient participate in the screening: Yes Do you worry about a steady place to live?: No Do you have any problems with any of the following?: No known problems In the past 12 months,have you had to go without utilities?: No Transportation Issues: No Has anyone in your support network made you feel unsafe?: No Have you or anyone in your house had to go without enough: No - Nursing Vital Signs Nursing Vital Signs: Initial Vital Signs Temperature 99.0 F 12/01/24 08:58 Pulse Rate 85 12/01/24 08:58 Respiratory Rate 20 12/01/24 08:58 Blood Pressure 160/70 12/01/24 08:58 O2 Sat by Pulse Oximetry 96 12/01/24 08:58 Pain Scale Pain Intensity 0 - Physical Exam General Appearance: no apparent distress, alert, obese Eye Exam: PERRL/EOMI, eyes nml inspection Ears, Nose, Throat Exam: normal ENT inspection, moist mucous membranes Neck Exam: normal inspection, non-tender, supple, full range of motion Respiratory Exam: airway intact, rhonchi (Right greater than left), wheezing (Right greater than left), No chest tenderness, No respiratory distress Cardiovascular Exam: regular rate/rhythm, normal heart sounds, normal peripheral pulses Gastrointestinal/Abdomen Exam: soft, normal bowel sounds, No tenderness Rectal Exam: not done Back Exam: normal inspection, normal range of motion, No CVA tenderness, No vertebral tenderness Extremity Exam: normal inspection, normal range of motion, pelvis stable Neurologic Exam: alert, oriented x 3, cooperative, chief librarian branch II-XII nml as tested, nml cerebellar function, nml station & gait, sensation nml Skin Exam: normal color, warm, dry Lymphatic Exam: No adenopathy SpO2 Interpretation: normal SpO2: 95 O2 Delivery: Room Air - Course Nursing assessment & vital signs reviewed: Yes Ordered Tests: Active Orders 24 hr Category Date Time Status IV Insertion STAT Care 12/01/24 09:02 Active CHEST 1 VIEW (PORTABLE) Stat Exams 12/01/24 09:03 Completed BLOOD CULTURE Stat Lab 12/01/24 10:25 Received CBC W DIFF Stat Lab 12/01/24 09:20 Completed CMP Stat Lab 12/01/24 09:20 Completed Lactic Acid Stat Lab 12/01/24 09:20 Completed MONO SCREEN Stat Lab 12/01/24 09:20 Completed NT PRO BNPII Stat Lab 12/01/24 09:20 Completed Medication Summary Generic Name Dose Route Start Last Admin Trade Name Rena PRN Reason Stop Dose Admin Ceftriaxone Sodium 1 gm in 100 mls @ 200 mls/hr 12/01/24 10:47 Rocephin 1 Gm / 100 Ml Nacl IV 12/01/24 11:16 STAT ONE Discontinued Medications Generic Name Dose Route Start Last Admin Trade Name Rena PRN Reason Stop Dose Admin Hydrocodone Bitart/Acetaminophen 10 ml 12/01/24 10:48 Hydrocodone/Acetaminophen 5 Ml Udcup PO 12/01/24 10:49 STAT STA Methylprednisolone Sodium 0 mg 12/01/24 10:48 Succinate 125 mg/ Sterile IV 12/01/24 10:49 Water 2 ml STAT ONE Lab/Rad Data: Laboratory Result Diagrams 12/01/24 09:20 12/01/24 09:20 Laboratory Results 12/01/24 12/01/24 12/01/24 Range/Units 09:20 09:20 09:20 WBC (4.23-9.07) x10^3/uL RBC (4.63-6.08) x10^6/uL Hgb (13.7-17.5) g/dL Hct (40.1-51.0) % MCV (79.0-92.2) fL MCH (25.7-32.2) pg MCHC (32.3-36.5) g/dL RDW (11.6-14.4) % Plt Count (163-337) x10^3/uL MPV (9.4-12.4) fL Gran % (34.0-67.9) % Immature Gran % (Auto) (0.001-0.429) % Nucleat RBC Rel Count (0.00-0.2) % Eos # (Auto) (0.04-0.54) x10^3/uL Immature Gran # (Auto) (0.001-0.031) x10^3u/L Absolute Lymphs (auto) (1.32-3.57) x10^3/uL Absolute Monos (auto) (0.30-0.82) x10^3/uL Absolute Nucleated RBC (0.00-0.012) x10^3u/L Lymphocytes % (21.8-53.1) % Monocytes % (5.3-12.2) % Eosinophils % (0.8-7.0) % Basophils % (0.2-1.2) % Absolute Granulocytes (1.78-5.38) x10^3/uL Basophils # (0.01-0.08) x10^3/uL Sodium (135-145) mmol/L Potassium (3.5-5.1) mmol/L Chloride (98-107) mmol/L Carbon Dioxide (22-30) mmol/L Anion Gap (5-15) MEQ/L BUN (9-20) mg/dL Creatinine (0.66-1.25) mg/dL Estimated GFR ML/MIN Glucose (74-106) mg/dL Lactic Acid 1.7 (0.4-2.0) Calcium (8.4-10.2) mg/dL Total Bilirubin (0.2-1.3) mg/dL AST (17-59) U/L ALT (0-50) U/L Alkaline Phosphatase (38-126) U/L NT-Pro-B Natriuret Pep (<300) pg/mL Serum Total Protein (6.3-8.2) g/dL Albumin (3.5-5.0) g/dL Monoscreen NEGATIVE (NEGATIVE) Influenza Type A Ag NEGATIVE (NEGATIVE) Influenza Type B Ag NEGATIVE (NEGATIVE) RSV (PCR) NEGATIVE (NEGATIVE) SARS-CoV-2 (PCR) NEGATIVE (NEGATIVE) Group A Strep Antibody (NEGATIVE) 12/01/24 12/01/24 12/01/24 Range/Units 09:20 09:20 09:20 WBC 7.0 (4.23-9.07) x10^3/uL RBC 4.10 L (4.63-6.08) x10^6/uL Hgb 13.0 L (13.7-17.5) g/dL Hct 39.0 L (40.1-51.0) % MCV 95.1 H (79.0-92.2) fL MCH 31.7 (25.7-32.2) pg MCHC 33.3 (32.3-36.5) g/dL RDW 13.0 (11.6-14.4) % Plt Count 197 (163-337) x10^3/uL MPV 10.8 (9.4-12.4) fL Gran % 62.4 (34.0-67.9) % Immature Gran % (Auto) 0.7 H (0.001-0.429) % Nucleat RBC Rel Count 0.0 (0.00-0.2) % Eos # (Auto) 0.45 (0.04-0.54) x10^3/uL Immature Gran # (Auto) 0.05 H (0.001-0.031) x10^3u/L Absolute Lymphs (auto) 1.35 (1.32-3.57) x10^3/uL Absolute Monos (auto) 0.74 (0.30-0.82) x10^3/uL Absolute Nucleated RBC 0.00 (0.00-0.012) x10^3u/L Lymphocytes % 19.4 L (21.8-53.1) % Monocytes % 10.6 (5.3-12.2) % Eosinophils % 6.5 (0.8-7.0) % Basophils % 0.4 (0.2-1.2) % Absolute Granulocytes 4.33 (1.78-5.38) x10^3/uL Basophils # 0.03 (0.01-0.08) x10^3/uL Sodium 133 L (135-145) mmol/L Potassium 4.6 (3.5-5.1) mmol/L Chloride 100 (98-107) mmol/L Carbon Dioxide 24 (22-30) mmol/L Anion Gap 13.5 (5-15) MEQ/L BUN 20 (9-20) mg/dL Creatinine 1.13 (0.66-1.25) mg/dL Estimated GFR 65.7 ML/MIN Glucose 278 H (74-106) mg/dL Lactic Acid (0.4-2.0) Calcium 8.6 (8.4-10.2) mg/dL Total Bilirubin 0.80 (0.2-1.3) mg/dL AST 38 (17-59) U/L ALT 29 (0-50) U/L Alkaline Phosphatase 60 (38-126) U/L NT-Pro-B Natriuret Pep 261 (<300) pg/mL Serum Total Protein 7.1 (6.3-8.2) g/dL Albumin 3.8 (3.5-5.0) g/dL Monoscreen (NEGATIVE) Influenza Type A Ag (NEGATIVE) Influenza Type B Ag (NEGATIVE) RSV (PCR) (NEGATIVE) SARS-CoV-2 (PCR) (NEGATIVE) Group A Strep Antibody NOT DETECTED (NEGATIVE) - Progress Progress: improved, re-examined Air Movement: good Progress Note: 12/01/24 09:16 My medical decision making and the assignment of moderate complexity to this patient's medical issue today is based on review of the patient's past medical history, review the patient's medication list, reviewed patient drug allergy list, history present illness and physical findings on examination. The workup in this patient includes placement of a intravenous line, CBC, CMP, blood culture, BNP, viral swabs, monotest, group A strep test, chest x-ray, lactic ac id Differential diagnosis includes was not limited to upper respiratory infection, pneumonia, viral illness, group A strep pharyngitis, CHF 12/01/24 10:05 The chest x-ray was interpreted by the radiologist and I reviewed the impression. The impression states hyperinflated and clear. No new or acute findings. 12/01/24 10:49 I interpreted the patient's laboratory data results. Based on the laboratory data results, there are no acute, emergent medical issues. Blood Culture(s) Obtained: Yes Antibiotics given: Yes Counseled pt/family regarding: lab results, diagnosis, need for follow-up, rad results Medical Desision Making - Independent Historian Additional History obtained from: Spouse - Diagnostic Testing Diagnostic test were ordered, analyzed, and reviewed by me: Yes Radiological Interpretation: Reviewed by me, Teleradiologist Report - Risk of complications The pt has a mod risk of morbidity or mortality based on: Need for prescription drug management - Departure Departure Disposition: Home Clinical Impression: Upper respiratory infection Condition: Stable Critical Care Time: No Referrals: VERN DICKEY [Primary Care Provider] - Follow up/PCP as directed Additional Instructions: Drink plenty of fluids. Take your medications as prescribed. Avoid exposure to any type of smoke. Call your primary care provider today, 12/01/2024, to make arrangements for follow-up appointment to be seen in the next 3 to 5 days. Prescriptions: Benzonatate 200 mg PO TID PRN #10 cap PRN Reason: Cough Cefdinir 300 mg PO BID #14 cap Prednisone 10 mg [Deltasone 10 mg] 10 mg PO TID #12 tablet
[2024-12-01 09:32] LABS: Absolute Neutrophil Ct (ANC) 4.33 x10^3/uL (1.78-5.38); BASOPHIL % 0.4 % (0.2-1.2); Basophil (Absolute #) 0.03 x10^3/uL (0.01-0.08); Eosinophil % 6.5 % (0.8-7.0); Eosinophil (Absolute #) 0.45 x10^3/uL (0.04-0.54); IMMATURE GRAN # 0.05 x10^3u/L (0.001-0.031); IMMATURE GRAN % 0.7 % (0.001-0.429); Lymphocyte (Absolute #) 1.35 x10^3/uL (1.32-3.57); Lymphocytes % 19.4 % (21.8-53.1); Mean Cell Volume 95.1 fL (79.0-92.2); Mean Corpuscular Hemoglobin 31.7 pg (25.7-32.2); Mean Corpuscular Hgb Concent. 33.3 g/dL (32.3-36.5); Mean Platelet Volume 10.8 fL (9.4-12.4); Monocyte (Absolute #) 0.74 x10^3/uL (0.30-0.82); Monocytes % 10.6 % (5.3-12.2); Neutrophil % 62.4 % (34.0-67.9); Platelet Count 197 x10^3/uL (163-337)
[2024-12-01 09:50] LABS: ALBUMIN 3.8 g/dL (3.5-5.0); ANION GAP 13.5 MEQ/L (5-15); BILIRUBIN,TOTAL 0.8 mg/dL (0.2-1.3); Calcium 8.6 mg/dL (8.4-10.2); Creatinine 1 1.13 mg/dL (0.66-1.25); EST GLOMERULAR FILTRATION RATE 65.7 ML/MIN; Potassium 4.6 mmol/L (3.5-5.1); Total Protein 7.1 g/dL (6.3-8.2)
--- NOTE | 2024-12-01 09:59 | XRAY ---
Indication: Productive cough. Comparison: December 21, 2023 Portable chest again hyperinflated and clear. Heart not enlarged again with left pacemaker. Bony thorax intact again with osteopenia and degenerative changes. No new/acute findings.
[2024-12-01 10:10] LABS: INFLUENZA A NEGATIVE (NEGATIVE); INFLUENZA B NEGATIVE (NEGATIVE); RESPIRATORY SYNCTIAL VIRUS NEGATIVE (NEGATIVE); SARS-CoV-2 Xpert Express NEGATIVE (NEGATIVE)
[2024-12-01] MEDS ORDERED: Sterile H2O 10 ml IJ ONE (10:53)
[2024-12-01] MEDS ORDERED: solu-MEDROL ONE (10:54)
[2024-12-01] MEDS ORDERED: HYDROCODONE-ACETAMIN 2.5-108/5 ML SOLUTION ONE (10:54)
[2024-12-01] MEDS ORDERED: ROCEPHIN 1 GM / 100 ML NaCl 1 GM/100 ML IVPB IV ONE (10:54)
[2024-12-01] MEDS: solu-MEDROL 125 MG, Sterile H2O 10 ml 2 ML IV ONE (10:55)
[2024-12-01] MEDS: HYDROCODONE-ACETAMIN 2.5-108/5 ML SOLUTION PO STA (10:55)
[2024-12-01] MEDS: ROCEPHIN 1 GM / 100 ML NaCl 1 GM/100 ML IVPB IV ONE (10:56)
[2024-12-01 11:20] VITALS: O2SAT 97
[2024-12-01 12:06] VITALS: BP 108/59; PULSE 59; RESP 18
== END 2024-12-01 12:07 | disposition home or self-care (01) ==
LOC: ED 08:50
DX: J06.9 Acute upper respiratory infection, unspecified (principal); R05.1 Acute cough; I10 Essential (primary) hypertension; E11.9 Type 2 diabetes mellitus without complications; E78.5 Hyperlipidemia, unspecified; Z79.52 Long term (current) use of systemic steroids; Z79.01 Long term (current) use of anticoagulants; Z79.4 Long term (current) use of insulin; Z79.84 Long term (current) use of oral hypoglycemic drugs; Z79.899 Other long term (current) drug therapy
CPT/HCPCS: 0241U; 36415; 71045; 80053; 83605; 83880; 85025; 86308; 87040; 87651; 96365; 96374; 99285; 99284; J0696; J2919; A9270-GY